=== PATIENT | female | born 1965 | race Caucasian/White ===

== ENCOUNTER → 2016-05-09 | Outpatient (CLI) | payer BC ==
[~2016-05-09] MED LIST: ALBU1AER9 INH; CHOL1TAB42 PO; EPP3/2 IM; LEVO50TA6 PO; LORA-741 PO; LXP/20 PO; ZOLP5TAB6 PO
[2016-05-09 17:13] LABS: THYROID STIMULATING HORMONE 2.07 uIu/ml (0.300-4.500)
== END | disposition home or self-care (01) ==
LOC: C.LABBC 14:04
PROVIDERS: ATTEND Internal Medicine Endocrinology, Diabetes & Metabolism
DX: E03.9 Hypothyroidism, unspecified (principal)

== ENCOUNTER → 2016-05-12 | Outpatient (CLI) | payer BC ==
--- NOTE | 2016-05-15 12:41 | MAMMOGRAPHY REPORT ---
BILATERAL DIGITAL SCREENING MAMMOGRAM TOMOSYNTHESIS WITH CAD: 05/12/2016 CLINICAL HISTORY: Routine screening. Patient has no complaints. TECHNIQUE: Breast tomosynthesis in addition to standard 2D mammography was performed. Current study was also evaluated with a Computer Aided Detection (CAD) system. COMPARISON: Comparison is made to exams dated: 05/07/2015 mammogram, 04/25/2013 mammogram, 05/01/2014 m ammogram, 04/22/2012 mammogram, and 04/14/2011 mammogram - [facility]. BREAST COMPOSITION: The tissue of both breasts is heterogeneously dense, which may obscure small ma sses. FINDINGS: There is a possible oval 12 mm mass in the left superior subareolar breast, for which ult rasound and possible additional spot compression views are recommended for further evaluation. The remainder of both breasts are stable compared to prior exams, without suspicious masses, calcifi cations, or areas of architectural distortion noted. There are stable post surgical changes in the right central breast from prior surgical excision. IMPRESSION: ACR BI-RADS CATEGORY 0: INCOMPLETE EVALUATION: NEED ADDITIONAL IMAGING EVALUATION Possible left subareolar breast mass, for which additional imaging evaluation is recommended. The p atient will be called to schedule an appointment. Approximately 10% of breast cancers are not detected with mammography. A negative mammographic repor t should not delay biopsy if a clinically suggestive mass is present. Mariann Kaur M.D. ah/:05/13/2016 14:48:04 Fisheries Director: Sharona ADLER([place])([place]), [facility] letter sent: Addl Imaging 0 BI-RADS Code: ACR BI-RADS Category 0: Incomplete Evaluation: Need Additional Imaging Evaluation
== END | disposition home or self-care (01) ==
LOC: C.MAMM 08:32
PROVIDERS: ATTEND Obstetrics & Gynecology
DX: Z12.31 Encounter for screening mammogram for malignant neoplasm of breast (principal); R92.8 Other abnormal and inconclusive findings on diagnostic imaging of breast

== ENCOUNTER → 2016-06-26 | Outpatient (CLI) | payer BC ==
--- NOTE | 2016-06-26 14:28 | MAMMOGRAPHY REPORT ---
ULTRASOUND OF LEFT BREAST: 06/26/2016 CLINICAL HISTORY: 50-year-old woman called back from screening mammography for a possible 12 mm mass in the anterior 12:00 subareolar left breast. 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 COMPARISON: Comparison is made to exams dated: 05/12/2016 mammogram, 05/07/2015 mammogram, 04/25/2013 m ammogram, 04/22/2012 mammogram, 06/12/2011 localization, and 04/14/2011 mammogram - [facility]. FINDINGS: Real-time high-resolution sonographic evaluation was performed in the 12:00 and periareol ar left breast with particular attention to the retroareolar breast. In the 12:00 periareolar axis, there is a lobulated anechoic benign simple cyst with posterior acoustic enhancement and circumscri bed borders, measuring 10.9 x 10.0 x 7.0 mm. This correlates well with the mammographic mass and is benign. Incidental note is made of a few other scattered anechoic cyst in the visualized left [address]. In the adjacent 12:00 periareolar left breast there is an anechoic cyst measuring 3.4 x 3.0 x 3 .4 mm. In the 11:00 left breast, 1 cm from the nipple, there is an oval parallel circumscribed bella gn anechoic 3.3 x 1.4 mm cyst versus focal duct ectasia. Another anechoic cyst is identified in the 4:00 left breast, 2 cm from the nipple, measuring 3.8 x 3.0 x 3.2 mm. No suspicious solid mass is seen. IMPRESSION: ACR BI-RADS CATEGORY 2: BENIGN 1. The possible mass in the 12:00 anterior/subareolar left breast correlates with a benign anechoic simple cyst on ultrasound. No further close follow-up is needed at this time. 2. Incidental note is made of a few other scattered anechoic cysts in the visualized left breast, c ompatible with benign fibrocystic changes. 3. There is no sonographic evidence of malignancy within the left breast. Advise follow-up at time of next annual screening mammogram. These results and recommendations were discussed with the jenna ent at the time of the exam. Jeanne Arzate M.D. ay/:06/26/2016 12:14:51 Farm Service Adviser: Hayley FAIRBANKS)([place]), [facility] letter sent: Normal 1/2 BI-RADS Code: ACR BI-RADS Category 2: Benign
== END | disposition home or self-care (01) ==
LOC: C.MAMM 08:38
PROVIDERS: ATTEND Obstetrics & Gynecology
DX: N63 Unspecified lump in breast (principal); N60.12 Diffuse cystic mastopathy of left breast

== ENCOUNTER → 2016-10-30 | Outpatient (CLI) | payer BC ==
[2016-10-30 14:15] LABS: THYROID STIMULATING HORMONE 0.529 uIu/ml (0.300-4.500)
== END | disposition home or self-care (01) ==
LOC: C.LABBC 09:36
PROVIDERS: ATTEND Internal Medicine Endocrinology, Diabetes & Metabolism
DX: E03.9 Hypothyroidism, unspecified (principal)

== ENCOUNTER → 2017-05-18 | Outpatient (CLI) | payer OTHER ==
--- NOTE | 2017-05-18 14:59 | MAMMOGRAPHY REPORT ---
BILATERAL DIGITAL SCREENING MAMMOGRAM TOMOSYNTHESIS WITH CAD: 05/18/2017 CLINICAL HISTORY: Routine screening. TECHNIQUE: Breast tomosynthesis in addition to standard 2D mammography was performed. Current study was also evaluated with a Computer Aided Detection (CAD) system. COMPARISON: Comparison is made to exams dated: 06/26/2016 ultrasound, 05/12/2016 mammogram, 05/07/2015 m ammogram, 05/01/2014 mammogram, 04/25/2013 mammogram, and 04/22/2012 mammogram - [facility]. BREAST COMPOSITION: The tissue of both breasts is heterogeneously dense, which may obscure small mas ses. FINDINGS: No suspicious masses, calcifications, or areas of architectural distortion are noted in ei ther breast. There has been no significant interval change compared to prior exams. There are stable post surgical changes in the right central breast from prior excisional biopsy. Asymmetry within th e left superior breast middle depth on the MLO view is stable dating back to at least the 2015 exam. IMPRESSION: ACR BI-RADS CATEGORY 2: BENIGN There is no mammographic evidence of malignancy. A 1 year screening mammogram is recommended. The pa tient will receive written notification of the results. Approximately 10% of breast cancers are not detected with mammography. A negative mammographic report should not delay biopsy if a clinically suggestive mass is present. Mariann Kaur M.D. /:05/18/2017 09:09:53 Engineering Project Designer: Arnoldo FAIRBANKS)([place]), [facility] letter sent: Normal 1/2 BI-RADS Code: ACR BI-RADS Category 2: Benign
== END ==
LOC: C.MAMM 08:33
PROVIDERS: ATTEND Obstetrics & Gynecology
DX: Z12.31 Encounter for screening mammogram for malignant neoplasm of breast (principal)

== ENCOUNTER → 2017-08-21 | Outpatient (CLI) | payer OTHER | END | disposition home or self-care (01) | LOC: C.PAPS 17:31 | PROVIDERS: ATTEND Obstetrics & Gynecology | DX: Z12.4 Encounter for screening for malignant neoplasm of cervix (principal) ==